=== PATIENT | female | born 1990 | race American Indian/Alaskan Native ===

== ENCOUNTER 2024-04-06 23:43 | Emergency (ER) | payer OTHER ==
[~2024-04-06] VITALS: Ht 152.4 cm; Wt 89.8 kg
[2024-04-07] MEDS ORDERED: IBUPROFEN 800 MG TAB PO ONE (01:00)
[2024-04-07 01:11] LABS: INFLUENZA B NAA NEGATIVE (NEGATIVE); RESPIRATORY SYNCYTIAL VIR NAA NEGATIVE (NEGATIVE)
[2024-04-07] MEDS ORDERED: ALBUTEROL SULFATE 8 GM HOME.PACK INH ONE (01:30)
[2024-04-07] MEDS ORDERED: ALBUTEROL/IPRATROPIUM 3 ML NEB INH ONE (01:30)
[2024-04-07] MEDS ORDERED: INHALER, ASSIST DEVICES 1 EACH SPACER MISC ONE (01:30)
[2024-04-07] MEDS ORDERED: DEXAMETHASONE SOD PHOS 10 MG/ML VIAL IM ONE (01:45)
[2024-04-07] MEDS ORDERED: FLONASE ALLERG9.9 ML NAS (02:05)
[2024-04-07 02:15] VITALS: BP 107/68
== END 2024-04-07 02:05 | disposition home or self-care (01) ==
LOC: ED 23:43
PROVIDERS: Internal Medicine
DX: J06.9 Acute upper respiratory infection, unspecified (principal)
CPT/HCPCS: 87502; 94640; 94664; 96372; 99283-25; A9270; J1100; U0002